=== PATIENT | male | born 1985 | race Hispanic/Latino ===

== ENCOUNTER 2023-06-10 11:54 | Emergency (ER) | payer SELFPAY ==
[~2023-06-10] VITALS: Ht 165.1 cm; Wt 59.2 kg
[2023-06-10] MEDS: IBUPROFEN 600MG TAB PO ONE (12:47)
[2023-06-10] MEDS ORDERED: IBUP-1022 PO (13:31)
[2023-06-10] MEDS ORDERED: ACET325C5 PO (13:31)
[2023-06-10 13:49] VITALS: BP 105/59; TEMP 98.3; O2SAT 99
== END 2023-06-10 13:51 | disposition home or self-care (01) ==
LOC: M ED 12:42
DX: H65.01 Acute serous otitis media, right ear (principal); J06.9 Acute upper respiratory infection, unspecified; B34.9 Viral infection, unspecified